=== PATIENT | female | born 1950 | race Caucasian/White ===

== ENCOUNTER 2016-07-01 16:39 | Inpatient (IN) ==
[2016-07-01] MEDS ORDERED: 0.9 % Sodium Chloride 1,000 ML IVC ONE (16:58)
--- NOTE | 2016-07-01 17:09 | Emergency Department Note ---
START Narrative - START START: I examined this patient and my medical decision-making was reviewed with the BLOOD BANK LABORATORY TECHNOLOGIST/PA/Advanced Practice Nurse/Resident Physician. I agree with the documented findings, disposition and treatment plan as described except to the extent set forth below. ED attending note: Patient seen with emergency medicine resident Dr. Lane. Please see a copy of his note for details of the H&P, evaluation, management and disposition of this patient. We independently had [id number] contact with the patient Briefly: A 65-year-old female history of hypertension presents with difficulty finding words and some aphasia since last night. Unknown last known well. Since she woke up with it this morning. Patient has had syncope in the past 2. Aside from her a fascia and apraxia she has a nonfocal neurologic examination patient will get a head CT labs EKG chest x-ray and admission. Disposition pending. Patient stable
--- NOTE | 2016-07-01 17:09 | Emergency Department Note ---
Disposition Clinical Impression: Acute CVA (cerebrovascular accident), Aphasia Disposition: Admitted As Inpatient Condition: Fair Referrals: Cecilia Lizarraga CNP [Primary Care Provider] - Time of Disposition: 19:04 Neuro HPI - General Chief Complaint: ED Neuro Symptoms/Deficit Stated Complaint: trouble speaking Time Seen by Provider: 07/01/16 16:45 Source: patient, family Limitations: no limitations Nursing Notes Reviewed: Yes Vital Signs Reviewed: Yes - History of Present Illness HPI Narrative: 65-year-old female with acute onset of a fascia, last on well was yesterday evening. She has also been evaluated with a head CT 2 days ago N N[place] Veronica was found to be negative for acute CVA. Patient had had several episodes of syncope over the course of last few days. She is having a fascia and dysarthria with slurred speech, patient has had word finding difficulty throughout the day. States this is new. No history of A. fib no history of CVA in the past. Patient does not take any blood thinners or aspirin. Onset of Symptoms Date: 06/30/16 (Last night last known well) Onset of Symptoms Time: 22:00 Symptom Onset Unknown: Yes Location: speech, dysarthria History of same: No Severity: none Symptoms Improving: No Improves with: none Worsens with: none Context: gradual onset On Anticoagulants: No Associated symptoms: Reports: syncope (Episodes of syncope this week.), weakness - Related Data Home Medications: Home Medications Medication Instructions Recorded Confirmed Insulin DETEMIR [Levemir] 21 unit SQ HS 03/23/16 06/26/16 Metformin [Glucophage] 1,000 mg PO BIDWM 06/26/16 06/26/16 Previous Rx's Medication Instructions Recorded Amlodipine [Norvasc] 10 mg PO DAILY #90 tablet 04/29/15 Lisinopril [Zestril] 10 mg PO DAILY #60 tablet 04/29/15 Simvastatin [Zocor] 20 mg PO HS #60 tablet 04/29/15 Pantoprazole Sodium [Protonix] 40 mg PO DAILY #30 tablet. 01/12/16 Azithromycin [Zithromax] 250 mg PO Q24H #6 tablet 06/26/16 Divalproex Sodium [Depakote] 250 mg PO BID #20 tablet. 06/29/16 Allergies/Adverse Reactions: Allergies Allergy/AdvReac Type Severity Reaction Status Date / Time Sulfa (Sulfonamide Allergy Swelling Verified 06/29/16 23:12 Antibiotics) of Lip/Tongue/Throat hydroxyzine [From Vistaril] AdvReac Irritable Verified 06/29/16 23:12 Penicillins AdvReac Nausea Verified 06/29/16 23:12 prednisone AdvReac See Verified 06/29/16 23:12 Comments Review of Systems: All systems were reviewed with historian and negative except as per below, or as documented in the HPI. Constitutional: Denies: fever, chills, weight changes CV: Denies: chest pain, palpitations Resp: Denies: cough, dyspnea, wheezes, hemoptysis GI: Denies: abdominal pain, N/V/D/C Denies: dysuria, hematuria MSK: Denies: back pain, neck pain, extremity pain Skin: Denies: new rashes, new lesions Neuro: aphasia and speech difficulty, syncope this week Denies: CALZADA sensory changes, gait difficulty Psych: Denies: anxiety, depression All systems ED: reviewed and negative except as stated. Past Medical History - Past Medical History Attestation: Yes The following information was validated with the patient. Source: patient Medical history: Reports: diabetes, fibromyalgia, GERD, hyperlipidemia, hypertension, myocardial infarction, other Surgical history: Reports: appendectomy, cholecystectomy, herniorrhaphy ( umbilical), hysterectomy, other (Abdominal tumor removal, tubal ligation, right ankle surgery 2) Psychiatric history: Reports: depression PSYCHOLOGICAL EXAMINER history: Reports: other - Social History Smoking Status: Current every day smoker Smokeless Tobacco Status: No Alcohol use: Reports: none Drug use: Reports: none Physical Exam Constitutional: alert and oriented, in NAD, vital signs reviewed and wnl HEENT: NCAT, sclera anicteric, PERRLA bilaterally, normal external ears bilaterally, nasal septum nondeviated, average dentition, MMM Neck: normal inspection, neck is supple, trachea midline Resp: normal chest inspection, CTA bilaterally, no resp distress CV: RRR, no m/g/r GI: normal inspection, Soft, NTND, BS present Back: normal inspection, no tenderness to palpation Neuro: A&O3, no gross motor or sensory deficits bilaterally, no cranial nerve deficits, patient has aphasia and dysarthria MSK: normal inspection, bilateral UE and LE with normal ROM Skin: No rashes, skin warm, dry, intact - General Limitations: no limitations General appearance: alert, in no apparent distress Course Course Narrative: 65-year-old female with a NIH score of 2 for a phase and dysarthria, no focal motor or sensory deficits appreciated, likely stroke however given symptoms and recent DT scan unclear about onset, it appears her last well was yesterday evening. She had been having TIAs as well they suspected seizures at the [facility] will get a repeat head CT and reassess. - Reevaluation(s) Reevaluation #1: CT scan shows a possible evolving stroke in the robles radiata, likely needs MRI in inpatient setting and stroke workup, I discussed the case with Dr. Claros he does stated that we should get a CT a head and neck to evaluate for embolic sources given that there is no atrial fibrillation, he recommended Plavix and aspirin baby aspirin daily an MRI in the morning Time: 19:00 Reevaluation #2: Hospitalist admits Jamila SECURITY DIRECTOR Time: 19:04 Vital Signs Temperature 98.8 F 07/01/16 16:45 Pulse Rate 75 07/01/16 16:45 Respiratory Rate 16 07/01/16 16:45 Blood Pressure 185/101 07/01/16 16:45 O2 Sat by Pulse Oximetry 98 07/01/16 16:45 Temperature 98.8 F 07/01/16 16:45 Pulse Rate 66 07/01/16 18:37 Respiratory Rate 16 07/01/16 18:37 Blood Pressure 181/88 07/01/16 18:37 O2 Sat by Pulse Oximetry 96 07/01/16 18:37 Oxygen Delivery Oxygen Delivery Room Air Neuro Symptoms/Deficit - Differential Diagnosis Likely: cerebrovascular accident, transient cerebral ischemia, convulsions - Medical Records Medical records reviewed: Yes I reviewed the patient's medical records. - Lab Data Lab results reviewed: Yes I reviewed the patient's lab results. Result diagrams: 07/01/16 17:44 07/01/16 17:44 Lab Results 07/01/16 07/01/16 07/01/16 Range/Units 17:44 17:44 17:44 WBC 15.5 H (4.3-11.1) K/mcL RBC 5.64 H (3.82-4.97) M/mcL Hgb 16.0 H (11.5-15.4) g/dL Hct 48.7 H (35.3-44.9) % MCV 86.3 (83.0-100.0) fL MCH 28.4 (28.0-33.3) pg MCHC 32.9 (31.6-35.5) g/dL RDW 13.1 (11.5-14.5) % Plt Count 441 H (140-400) K/mcL MPV 8.9 L (9.4-12.4) fL Immature Gran % 0.3 (0-4) % Seg Neutrophils % 50.4 % Lymphocytes % 41.2 % Monocytes % 6.5 % Eosinophils % 1.0 % Basophils % 0.6 % Neutrophils # 7.8 (1.6-8.9) K/mcL Lymphocytes # 6.4 H (0.6-4.6) K/mcL Monocytes # 1.0 (0.0-1.3) K/mcL Eosinophils # 0.2 (0.0-0.6) K/mcL Basophils # 0.1 (0.0-0.2) K/mcL Immature Plt Fraction 3.2 (1.1-6.1) % PT 11.2 (9.4-12.1) Seconds INR 1.0 APTT 29.6 (26.0-36.0) Seconds Sodium 140 (136-145) mEq/L Potassium 4.0 (3.5-4.5) mEq/L Chloride 106 (98-109) mEq/L Carbon Dioxide 24 (19-29) mEq/L BUN 12 (7-20) mg/dL Creatinine 0.73 (0.57-1.11) mg/dL Est GFR ( Amer) > 60 (> 60) Est GFR (Non-Af Amer) > 60 (> 60) BUN/Creatinine Ratio 16 (6-26) Glucose 101 H (70-99) mg/dL POC Glucose (58-89) Calculated Osmolality 290 (280-300) Calcium 9.5 (8.6-10.8) mg/dL Troponin I (0-0.03) ng/mL TSH (0.350-4.840) mcIU/mL 07/01/16 07/01/16 07/01/16 Range/Units 17:44 17:44 18:22 WBC (4.3-11.1) K/mcL RBC (3.82-4.97) M/mcL Hgb (11.5-15.4) g/dL Hct (35.3-44.9) % MCV (83.0-100.0) fL MCH (28.0-33.3) pg MCHC (31.6-35.5) g/dL RDW (11.5-14.5) % Plt Count (140-400) K/mcL MPV (9.4-12.4) fL Immature Gran % (0-4) % Seg Neutrophils % % Lymphocytes % % Monocytes % % Eosinophils % % Basophils % % Neutrophils # (1.6-8.9) K/mcL Lymphocytes # (0.6-4.6) K/mcL Monocytes # (0.0-1.3) K/mcL Eosinophils # (0.0-0.6) K/mcL Basophils # (0.0-0.2) K/mcL Immature Plt Fraction (1.1-6.1) % PT (9.4-12.1) Seconds INR APTT (26.0-36.0) Seconds Sodium (136-145) mEq/L Potassium (3.5-4.5) mEq/L Chloride (98-109) mEq/L Carbon Dioxide (19-29) mEq/L BUN (7-20) mg/dL Creatinine (0.57-1.11) mg/dL Est GFR ( Amer) (> 60) Est GFR (Non-Af Amer) (> 60) BUN/Creatinine Ratio (6-26) Glucose (70-99) mg/dL POC Glucose 88 (58-89) Calculated Osmolality (280-300) Calcium (8.6-10.8) mg/dL Troponin I 0.00 (0-0.03) ng/mL TSH 1.842 (0.350-4.840) mcIU/mL - Radiology Data Radiology results reviewed: Yes I reviewed the patient's radiology results. Chest X-Ray 07/01/16 16:59 IMPRESSION: Unremarkable portable AP chest exam D/ / Tay De Souza MD / Tay De Souza MD Interpreting Provider: Tay De Souza MD Head CT 07/01/16 16:59 IMPRESSION: Subtle areas of hypodensity are seen in the robles radiata region and parietal lobe on the left suggestive of developing infarcts. Consider brain MRI for further characterization D/ / Arsenio Honeycutt MD / Arsenio Honeycutt MD Interpreting Provider: Arsenio Honeycutt MD - EKG Data EKG attestation: Yes I reviewed and interpreted this EKG. EKG shows normal: sinus rhythm Rate: normal (69 bpm LA 180 QRS 86 QTc 387.) Rhythm: NSR [place]/QRS: normal When compared to previous EKG there are: previous EKG unavailable Interpretation: normal EKG - Core Measures AMI Core Measures Followed: No NIH Stroke Scale - Level of Consciousness LOC: Alert - LOC Questions LOC Questions: Answers both correctly - LOC Commands LOC Commands: Performs both correctly - Best Gaze Best Gaze: Normal - Visual Visual: No visual loss - Facial Palsy Facial Palsy: Normal - Motor Arms Motor Arm-Left: No drift for 10 seconds Motor Arm-Right: No drift for 10 seconds - Motor Legs Motor Leg-Left: No drift for 5 seconds Motor Leg-Right: No drift for 5 seconds - Limb Ataxia Limb Ataxia: Absent of affected limb too weak to perform exam - Sensory Sensory: Normal - Best Language Best Language: Mild to moderate aphasia. Examiner can identify picture from response - Dysarthria Dysarthria: Mild, slurs some words - Extinction and Inattention Extinction and Inattention: Normal - NIHSS Total Score NIHSS Total Score: 2 TPA Checklist - Eligibilty for IV tPA 1. LKW equal to or less than 4.5 hours be before treatment: No - LKW: 3-4.5 hrs Add. Contraindications Patient/family understanding: The patient/family members have been counseled and understood the risk, benefit , and alternatives of treatment.
[2016-07-01 17:50] LABS: Basophils # 0.1 K/mcL (0.0-0.2); Basophils % 0.6 %; Eosinophils # 0.2 K/mcL (0.0-0.6); Hematocrit 48.7 % (35.3-44.9); Immature Granulocytes % 0.3 % (0-4); Immature Platelets 3.2 % (1.1-6.1); Lymphocytes # 6.4 K/mcL (0.6-4.6); Lymphocytes % 41.2 %; Mean Corpuscular HGB Conc 32.9 g/dL (31.6-35.5); Mean Corpuscular Hemoglobin 28.4 pg (28.0-33.3); Mean Corpuscular Volume 86.3 fL (83.0-100.0); Mean Platelet Volume 8.9 fL (9.4-12.4); Monocytes % 6.5 %; Neutrophils # 7.8 K/mcL (1.6-8.9); Platelet Count 441 K/mcL (140-400); Red Blood Count 5.64 M/mcL (3.82-4.97); Red Cell Distribution Width 13.1 % (11.5-14.5); Segmented Neutrophils % 50.4 %
[2016-07-01 17:55] LABS: Prothrombin Time 11.2 Seconds (9.4-12.1)
[2016-07-01 17:57] LABS: Activated Partial Thrombo Time 29.6 Seconds (26.0-36.0)
[2016-07-01 18:01] LABS: BUN/Creatinine Ratio 16 (6-26); Blood Urea Nitrogen 12 mg/dL (7-20); Calcium 9.5 mg/dL (8.6-10.8); Carbon Dioxide 24 mEq/L (19-29); Chloride 106 mEq/L (98-109); Glucose 101 mg/dL (70-99); Osmolality,Calculated 290 (280-300); Sodium 140 mEq/L (136-145); eGFR For African Americans > 60 (> 60); eGFR For Non-African Americans > 60 (> 60)
[2016-07-01] MEDS ORDERED: Aspirin 81 MG TAB.CHEW PO ONE ×3 (18:12→18:58)
--- NOTE | 2016-07-01 20:42 | Internal Med History&Physical ---
Date of Encounter: 07/01/16 Time of Encounter: 21:03 Assessment and Plan (1) Acute CVA (cerebrovascular accident) Current visit: Yes Status: Acute with dysphasia. CT head showed Possible developing infarct in the robles radiata region and parietal lobe on the left. CTA showed stenosis of the M1 segment left middle cerebral artery. Neurologist recommended aspirin and plavix. will obtain MRI brain; Neurology consult; PT/ Speech therapy consult. (2) Dysphasia Current visit: Yes Status: Acute Due to acute CVA. Speech therapy and Neurology consult. (3) DM (diabetes mellitus) Current visit: Yes Status: Chronic start sliding scale insulin Qualifiers: Diabetes mellitus type: type 2 Diabetes mellitus complication status: with unspecified complications Diabetes mellitus halfway insulin use: with entertainment dancer use Qualified Code(s): E11.8 - Type 2 diabetes mellitus with unspecified complications; Z79.4 - elevator troubleshooter (current) use of insulin (4) HTN (hypertension) Current visit: Yes Status: Chronic Permissive hypertension. consider resuming home meds from tomorrow Qualifiers: Hypertension type: essential hypertension Qualified Code(s): I10 - Essential (primary) hypertension (5) Leucocytosis Current visit: Yes Status: Acute UA is negative. CTA neck showed tree-in-bud opacities suspected to be due to bronchiolitis. Will start levofloxacin (pt was on azithromycin at home and is not responding). We can consider low dose steroids (but pt is listed to be allergic to prednisone) and bronchodilators. check CRP Qualifiers: Leukocytosis type: unspecified Qualified Code(s): D72.829 - Elevated white blood cell count, unspecified (6) DVT prophylaxis Current visit: Yes Status: Acute SCDs Internal Medicine - H&P: HPI Chief complaint: Not able to speak Admitted From: Emergency Dept Plans for Post Hospital Care: Home History of present illness: Ms. Ko is a 65 year old female with h/o diabetes mellitus, fibromyalgia, GERD, hyperlipidemia, hypertension, myocardial infarction, and depression had episodes of syncope and was evaluated at [facility] and had negative CT head. She reports that she could speak this morning, after she woke up. And has been continuing intermittently through the day. She denies headache , visual disturbance, weakness of the extremities, urinary or bowel problems. She denies chest pain, shortness of breath, cough, wheezing, abdominal pain, dysuria or bowel disturbances. She reports that she has been passing a lot of urine. She was evaluated in the ER and CT scan Head showed possible evolving stroke in the robles radiate. ER provider discussed with Neurologist Dr. Claros, who recommended CTA head and neck and Plavix and aspirin and MRI brain in the morning. She is admitted to the hospitalist service for further management. Past Med Surg Social Fam HX - Past Medical History Medical history: diabetes, fibromyalgia, GERD, hyperlipidemia, hypertension, myocardial infarction, other Psychiatric history: depression - Past Surgical History Surgical History: appendectomy, cholecystectomy, herniorrhaphy (umbilical), hysterectomy, other (Abdominal tumor removal, tubal ligation, right ankle surgery 2) - Social History Smoking Status: Current every day smoker Smokeless Tobacco Status: No Alcohol use: none Drug use: none - Family History Father Living Status: Hx Family Cardiac Disorders: Yes (Massive coronary) Mother Living Status: Hx Family Cancer: Yes Internal Medicine - H&P: Meds Amlodipine [Norvasc] 10 mg PO DAILY #90 tablet 04/29/15 [Rx] Lisinopril [Zestril] 10 mg PO DAILY #60 tablet 04/29/15 [Rx] Simvastatin [Zocor] 20 mg PO HS #60 tablet 04/29/15 [Rx] Pantoprazole Sodium [Protonix] 40 mg PO DAILY #30 tablet. 01/12/16 [Rx] Insulin DETEMIR [Levemir] 21 unit SQ HS 03/23/16 [History] Metformin [Glucophage] 1,000 mg PO BIDWM 06/26/16 [History] Allergies Sulfa (Sulfonamide Antibiotics) Allergy (Verified 06/29/16 23:12) Swelling of Lip/Tongue/Throat hydroxyzine [From Vistaril] Adverse Reaction (Verified 06/29/16 23:12) Irritable Penicillins Adverse Reaction (Verified 06/29/16 23:12) Nausea prednisone Adverse Reaction (Verified 06/29/16 23:12) See Comments Elevates blood sugar All Systems PM: A 10-system review of systems was performed and is negative for pertinent findings except as documented above in the HPI. - Constitutional Vitals: Temp Pulse Resp BP Pulse Ox 97.8 F 64 16 208/85 93 L 07/01/16 19:55 07/01/16 19:55 07/01/16 19:55 07/01/16 19:55 07/01/16 19:55 Internal Med - H&P Results - Labs CBC & Chem 7: 07/01/16 17:44 07/01/16 17:44 - EKG Data -: EKG Interpreted by Myself EKG shows normal: sinus rhythm - Impressions ITS Impressions Chest X-Ray 07/01/16 16:59 IMPRESSION: Unremarkable portable AP chest exam D/ / Tay De Souza MD / Tay De Souza MD Interpreting Provider: Tay De Souza MD Head CT 07/01/16 16:59 IMPRESSION: Subtle areas of hypodensity are seen in the robles radiata region and parietal lobe on the left suggestive of developing infarcts. Consider brain MRI for further characterization D/ / Arsenio Honeycutt MD / Arsenio Honeycutt MD Interpreting Provider: Arsenio Honeycutt MD Head CTA 07/01/16 18:18 IMPRESSION: 1. Severe, hemodynamically significant stenosis of the M1 segment left middle cerebral artery. 2. Mild atherosclerotic plaque involving the cavernous internal carotid arteries without hemodynamically significant stenosis. D/ / Jalen Gruber MD / Jalen Gruber MD Interpreting Provider: Jalen Gruber MD Neck CTA 07/01/16 18:18 IMPRESSION: 1. No acute arterial abnormality in the neck. 2. Minimal atherosclerotic disease. No significant carotid or vertebral artery stenosis. 3. Emphysema with diffuse bilateral pulmonary tree-in-bud opacities. Differential diagnostic considerations include infectious or inflammatory bronchiolitis or eosinophilic granulomatosis. Findings are similar to recent CT of the chest performed 06/26/2016. D/ / Jalen Gruber MD / Jalen Gruber MD Interpreting Provider: Jalen Gruber MD
[2016-07-01] MEDS ORDERED: Naloxone 0.4 MG/ML INJ IVP PRN (21:56)
[2016-07-01] MEDS ORDERED: Ipratropium/Albuterol Neb 3 ML IH PRN (22:00)
[2016-07-01] MEDS ORDERED: Dextrose Gel 15 GM PO PRN ×2 (22:02)
[2016-07-01] MEDS ORDERED: *HR* Dextrose 50 % in Water (Syg) 50 ML SYRINGE IVP PRN (22:02)
[2016-07-01] MEDS ORDERED: D5% in Water 1,000 ML IV PRN (22:02)
[2016-07-01 22:59] LABS: Bilirubin,Urine Negative (Negative); Blood,Urine Negative (Negative); Clarity,Urine Clear (Clear); Color,Urine Yellow (Yellow); Glucose,Urine (UA) Normal (Normal); Ketones,Urine Negative (Negative); Leukocyte Esterase,Urine Negative (Negative); Nitrite,Urine Negative (Negative); PH,Urine 6.5 pH Units (5.0-8.0); Protein,Urine 30 mg/dL (Neg-Trace); Specific Gravity,Urine 1.006 (1.010-1.025); Urobilinogen,Urine Normal (Normal)
[2016-07-01 23:01] LABS: Bacteria,Urine None Seen per hpf (None-Few); Hyaline Casts,Urine None Seen per lpf (None-Few); RBC,Urine 0-3 per hpf (0-3); Squamous Epithelial Cell,Urine None Seen per lpf (None-Few); WBC,Urine 0-3 per hpf (0-3)
[2016-07-02 06:19] LABS: Hematocrit 43.9 % (35.3-44.9); Mean Corpuscular HGB Conc 32.8 g/dL (31.6-35.5); Mean Corpuscular Hemoglobin 28.6 pg (28.0-33.3); Mean Corpuscular Volume 87.1 fL (83.0-100.0); Mean Platelet Volume 9.3 fL (9.4-12.4); Platelet Count 358 K/mcL (140-400); Red Blood Count 5.04 M/mcL (3.82-4.97); Red Cell Distribution Width 13.4 % (11.5-14.5)
[2016-07-02 06:23] LABS: Hemoglobin 14.4 g/dL (11.5-15.4)
[2016-07-02 06:58] LABS: BUN/Creatinine Ratio 18 (6-26); Blood Urea Nitrogen 13 mg/dL (7-20); Calcium 8.6 mg/dL (8.6-10.8); Carbon Dioxide 24 mEq/L (19-29); Chloride 106 mEq/L (98-109); Chol/HDL Ratio 4.5 (0-4.9); Cholesterol 161 mg/dL (< 200); Glucose 200 mg/dL (70-99); HDL Cholesterol 36 mg/dL (40-59); LDL Cholesterol,Calculated 98 mg/dL (0-99); Osmolality,Calculated 292 (280-300); Potassium 3.9 mEq/L (3.5-4.5); Sodium 138 mEq/L (136-145); Triglycerides 133 mg/dL (< 150); eGFR For African Americans > 60 (> 60); eGFR For Non-African Americans > 60 (> 60)
[2016-07-02 07:38] LABS: C-Reactive Protein 5 mg/L (Less than 5)
[2016-07-02] MEDS: Aspirin Enteric Coated 81 MG Tablet PO SCH (07:42)
[2016-07-02] MEDS: levoFLOXacin 750 MG TABLET PO SCH (07:42)
[2016-07-02] MEDS: Insulin LISPRO 300 UNITS/3 ML VIAL SQ SCH ×4 (07:43→21:55)
--- NOTE | 2016-07-02 10:40 | Neurology - Consult Note ---
Date of Encounter: 07/02/16 Time of Encounter: 08:45 Assessment and Plan (1) Acute CVA (cerebrovascular accident) Current Visit: Yes Status: Acute This patient who has a history of multiple risk factor for stroke, including hypertension and diabetes noted to have some difficulty to speech at presentation which seems to resolve now. CT scan CT scan did show some concern often involving a stroke and at the same time CT and of the head shows no evidence of intracranial stenosis in the left M1 segment of MCA. Seems to be quite focal stenosis perhaps the cause of her difficulty with the speech. He seems to be doing better now suggested that we should continue on aspirin along with Plavix 75 mg daily and at the same time continue on a statin. She will need a complete workup including echocardiogram and MRI of the brain she already had CT angio of the neck that did not shows any critical stenosis of the carotid or vertebrals. Need to monitor her blood sugar and blood pressure and keep it is stable. She will need physical therapy evaluation for gait and balance to make sure that this is stable (2) DM (diabetes mellitus) Current Visit: Yes Status: Chronic Qualifiers: Diabetes mellitus type: type 2 Diabetes mellitus traveling operator insulin use: with traveling operator use Qualified Code(s): E11.8 - Type 2 diabetes mellitus with unspecified complications; Z79.4 - snf (current) use of insulin (3) HTN (hypertension) Current Visit: Yes Status: Chronic Qualifiers: Hypertension type: essential hypertension Qualified Code(s): I10 - Essential (primary) hypertension (4) Stenosis of intracranial vessel Current Visit: Yes Status: Acute She will be on antiplatelet therapy along with a statin as she is stable now will continue on it perhaps she could be evaluated by vascular neurologist as an outpatient the possibility of any stent placement in the future but at this time as she is stable suggested medical management History of Present Illness HPI: Ms. Ko is a 65 year old female with h/o diabetes mellitus, fibromyalgia, GERD, hyperlipidemia, hypertension, myocardial infarction, and depression had episodes of syncope and was admited via ER, seen due to difficulty with speech , mostly word finding difficulty, she denies any focal weakness, her symptoms has been present for whole day, She denies headache, visual disturbance, weakness of the extremities, urinary or bowel problems. She denies chest pain, shortness of breath, cough, wheezing, abdominal pain, dysuria or bowel disturbances. S She was evaluated in the ER and CT scan Head showed possible evolving stroke in the robles radiate. She is admitted to the hospitalist service for further management. doing better now, no speech deficit, feels weak but not focal weakness Past Med Surg Social Fam HX - Past Medical History Medical history: diabetes, fibromyalgia, GERD, hyperlipidemia, hypertension, myocardial infarction, other Psychiatric history: depression - Past Surgical History Surgical History: appendectomy, cholecystectomy, herniorrhaphy (umbilical), hysterectomy, other (Abdominal tumor removal, tubal ligation, right ankle surgery 2) - Social History Smoking Status: Current every day smoker Smokeless Tobacco Status: No Alcohol use: none Drug use: none - Family History Father Living Status: Hx Family Cardiac Disorders: Yes (Massive coronary) Mother Living Status: Hx Family Cancer: Yes Medications and Allergies Amlodipine [Norvasc] 10 mg PO DAILY #90 tablet 04/29/15 [Rx] Lisinopril [Zestril] 10 mg PO DAILY #60 tablet 04/29/15 [Rx] Simvastatin [Zocor] 20 mg PO HS #60 tablet 04/29/15 [Rx] Pantoprazole Sodium [Protonix] 40 mg PO DAILY #30 tablet. 01/12/16 [Rx] Insulin DETEMIR [Levemir] 21 unit SQ HS 03/23/16 [History] Metformin [Glucophage] 1,000 mg PO BIDWM 06/26/16 [History] Allergies Sulfa (Sulfonamide Antibiotics) Allergy (Verified 06/29/16 23:12) Swelling of Lip/Tongue/Throat hydroxyzine [From Vistaril] Adverse Reaction (Verified 06/29/16 23:12) Irritable Penicillins Adverse Reaction (Verified 06/29/16 23:12) Nausea prednisone Adverse Reaction (Verified 06/29/16 23:12) See Comments Elevates blood sugar All Systems: A 10-system review of systems was performed and is negative for pertinent findings except as documented above in the HPI. Physical Examination - Vital Signs Vital Signs: Initial Vital Signs Temp Pulse Resp BP Pulse Ox 98.8 F 75 16 185/101 98 07/01/16 16:45 07/01/16 16:45 07/01/16 16:45 07/01/16 16:45 07/01/16 16:45 - Exam Exam: Heart S1 S2 audible, LUNGS< CTA, EXT no edema - Neurologic Detailed motor examination: full strength in all major muscle groups Motor examination - right side: 08/25: deltoids, biceps, triceps, wrist flexion, wrist extension, fire protection engineer, hip flexors, tibialis Anterior, quadriceps, toe extension (EHL), plantarflexion Motor examination - left side: 08/25: deltoids, biceps, triceps, wrist flexion, wrist extension, hip flexors, fire protection engineer, quadriceps, tibialis Anterior, toe extension (EHL), plantarflexion Detailed sensory examination: intact Reflex and gait examination: intact Reflexes: Biceps: 1+, Triceps: 1+, Brachioradialis: 1+, Patella: 1+, Achilles: 1 + Mental Status Examination: awake, alert, oriented to person, oriented to place, oriented to time, follows commands appropriately, answers questions appropriately, no agnosia, no aphasia, no aproxia Cranial nerve examination: PERRL, EOMI, visual huerta intact, corneal reflexes brisk symmetrically, sensory to face intact, mastication intact, no facial asymmetry is present, no dysarthria, hearing is intact symmetrically, soft palate elevates bilaterally upon phonation, gag reflex intact, flexes SCM and trapezius muscles symmetrically with full power, tongue protrudes midline, no atrophy or facial fasiculations present Cerebellar examination: no gait ataxia, no truncal ataxia Results - Laboratory Findings CBC and BMP: 07/02/16 05:56 07/02/16 06:37 Abnormal lab findings: Abnormal lab results WBC 14.8 K/mcL (4.3-11.1) H 07/02/16 05:56 RBC 5.04 M/mcL (3.82-4.97) H 07/02/16 05:56 MPV 9.3 fL (9.4-12.4) L 07/02/16 05:56 Lymphocytes # 6.4 K/mcL (0.6-4.6) H 07/01/16 17:44 Glucose 200 mg/dL (70-99) H 07/02/16 06:37 C-Reactive Protein 5 mg/L (Less than 5) H 07/02/16 06:37 HDL Cholesterol 36 mg/dL (40-59) L 07/02/16 06:37 Ur Specific [place] 1.006 (1.010-1.025) L 07/01/16 17:11 Urine Protein 30 mg/dL (Neg-Trace) H 07/01/16 17:11 - Diagnostic Findings Additional findings: CTA HEAD: stenosis in left M1 segment of MCA, NECK CTA negative Consult Discharge Plan - Plan Referrals: Cecilia Lizarraga, JARRET [Primary Care Provider] -
--- NOTE | 2016-07-02 11:45 | Internal Med Progress Note ---
Date of Encounter: 07/02/16 Time of Encounter: 11:43 - Assessment and plan (1) Acute CVA (cerebrovascular accident) Current Visit: Yes Status: Acute Assessment and plan: CTA head reported severe, hemodynamically significant stenosis of the M1 segment left middle cerebral artery. Mild atherosclerotic plaque involving the cavernous internal carotid arteries without hemodynamically significant stenosis. Neurology evaluation appreciated We will continue stroke workup Follow-up 2-D echo, carotid Dopplers, MRI brain Continue aspirin, Plavix, and Lipitor Patient tolerating by mouth intake well Physical therapy and occupational therapy evaluation (2) Leucocytosis Current Visit: Yes Status: Acute Assessment and plan: Leukocytosis improving Imaging studies consistent with bronchiolitis We will continue Levaquin at this time Continue to closely monitor Qualifiers: Leukocytosis type: unspecified Qualified Code(s): D72.829 - Elevated white blood cell count, unspecified (3) DM (diabetes mellitus) Current Visit: Yes Status: Chronic Assessment and plan: Continue home dose of Levemir Sliding-scale insulin algorithm as needed Monitor fingerstick and blood glucose closely Qualifiers: Diabetes mellitus type: type 2 Diabetes mellitus complication status: with unspecified complications Diabetes mellitus [facility] insulin use: with [facility] use Qualified Code(s): E11.8 - Type 2 diabetes mellitus with unspecified complications; Z79.4 - tank terminal gauger (current) use of insulin (4) HTN (hypertension) Current Visit: Yes Status: Chronic Assessment and plan: Restart home medications Qualifiers: Hypertension type: essential hypertension Qualified Code(s): I10 - Essential (primary) hypertension (5) HLD (hyperlipidemia) Current Visit: No Status: Acute Assessment and plan: Continue statin therapy Qualifiers: Hyperlipidemia type: unspecified Qualified Code(s): E78.5 - Hyperlipidemia , unspecified (6) Morbid obesity with BMI of 40.0-44.9, adult Current Visit: Yes Status: Chronic (7) DVT prophylaxis Current Visit: Yes Status: Acute Assessment and plan: IPCD - Subjective Interval history: Pt is a 65y/o female admitted for management of acute CVA. Patient seen and examined with family present at bedside. Patient reports of feeling better compared to the previous day, states her speech is back to normal , and reports of improvement in her weakness as well. Able to ambulate to the bathroom and back without any issues. - Constitutional Vitals: Temp Pulse Resp BP Pulse Ox 98.9 F 75 14 179/85 95 07/02/16 07:44 07/02/16 07:44 07/02/16 07:44 07/02/16 07:44 07/02/16 07:44 General appearance: Present: cooperative, A&O X 3, morbidly obese, no acute distress, answers questions appropriately - Head Head exam: Present: atraumatic, normocephalic - Eye Eye exam: Present: EOMI, normal appearance, PERRL, conjuntiva pink, sclera anicteric - Respiratory Respiratory exam: Present: CTAB. Absent: accessory muscle use, rales, rhonchi, wheezes - Cardiovascular Cardiovascular exam: Present: RRR, +S1, +S2. Absent: diastolic murmur, gallop, rubs, systolic murmur - GI/Abdominal GI/Abdominal exam: Present: normal bowel sounds, soft, no peritoneal signs. Absent: distended, tenderness - Extremities Exam Extremities exam: Present: warm, radial pulses palpable and symetrical. Absent : calf tenderness, cyanotic, pedal edema - Neurological Exam Neurological exam: Present: CN II-XII intact, oriented X3, no focal deficits. Absent: pronater drift, facial droop, speech deficit - Psychiatric Psychiatric exam: Present: normal affect, normal mood Internal Medicine: Result - Labs CBC & Chem 7: 07/02/16 05:56 07/02/16 06:37 Labs: Short CBC 07/02/16 Range/Units 05:56 WBC 14.8 H (4.3-11.1) K/mcL Hgb 14.4 D (11.5-15.4) g/dL Hct 43.9 (35.3-44.9) % Plt Count 358 (140-400) K/mcL BMP 07/02/16 06:37 Sodium 138 Potassium 3.9 Chloride 106 Carbon Dioxide 24 BUN 13 Creatinine 0.72 Glucose 200 H Calcium 8.6 - ABG Interpretation ABG results: PT/INR, D-dimer PT 11.2 Seconds (9.4-12.1) 07/01/16 17:44 - VTE Documentation of Mechanical Device: Intermittent pneumatic compression device Consult Discharge Plan - Plan Referrals: Cecilia Lizarraga AERONAUTICAL ENGINEERING TEACHER [Primary Care Provider] -
[2016-07-02] MEDS ORDERED: Perflutren Lipid Microsphere 1.3 ML in 0.9 % Sodium Chloride 8.7 ML IVP ONE (14:53)
--- NOTE | 2016-07-02 16:45 | Carotid Imaging Report ---
Carotid Duplex Patient Name:Dorota Ko Order Number:[id number] Procedure Date:07/02/2016 Date:1950ge:65 yrs Gender:Female Lt BP:194 / 94 mmHg Rt.BP:182 / 94 mmHgHeart Rate: Location:[facility] Room #: 2N10 Psychotherapist:Sofia Cruz RVT Referring MD:Lexie Cheung MD manager clinical applications:Cecilia Lizarraga, PAPER MAKING MACHINE OPERATOR Reading MD:Dalton Martinez MD , FACS Risk Factors Yes/No Hypertension Yes Hypercholesterolemia Yes Diabetes Yes Smoking Current Yes Impressions: Findings: Bilateral carotid systems have nonstenotic plaque. Findings Carotid Duplex: Right: There is nonstenotic plaque in the right bifurcation. There is smooth heterogeneous plaque. There is nonstenotic plaque in the right proximal internal carotid artery. There is smooth heterogeneous plaque. Left: There is nonstenotic plaque in the left bifurcation. There is smooth heterogeneous plaque. There is nonstenotic plaque in the left proximal internal carotid artery. There is smooth heterogeneous plaque. Prior Study: No prior study available for comparison. Carotid Results Right PSV EDV Assessment Proximal CCA 59 9 Normal Mid CCA 47 7 Normal Distal CCA 50 9 Normal Bifurcation 43 10 Non Stenotic Plaque Proximal ICA 43 9 Non Stenotic Plaque Mid ICA 72 16 Normal Distal ICA 86 18 Normal ECA 70 10 Normal Vertebral Artery 60 12 Antegrade Flow Left PSV EDV Assessment Proximal CCA 73 9 Normal Mid CCA 57 9 Normal Distal CCA 54 11 Normal Bifurcation 47 7 Non Stenotic Plaque Proximal ICA 44 12 Non Stenotic Plaque Mid ICA 103 28 Normal Distal ICA 94 25 Normal ECA 104 11 Normal Vertebral Artery 35 7 Antegrade Flow Ratio's Right ICA/CCA Ratio: 1.82 ICA/CCA Values: 86/47 Left ICA/CCA Ratio: 1.80 ICA/CCA Values: 103/57 Updated by Dalton Martinez MD, FACS on 07/02/2016 4:39:23 PM Dalton Martinez MD electronically signed on 07/02/2016 4:40:01 PM with status of Final
[2016-07-02] MEDS: Metoprolol XL (24 HR) Succ 50 MG TAB.ER.24H PO SCH (16:53)
[2016-07-02] MEDS ORDERED: INSULIN DETEMIR 21 UNIT SQ SCH (21:00)
--- NOTE | 2016-07-02 21:36 | ECHO - Doppler Report ---
Echo with Imaging Enhancement Agent Name: Dorota Ko Date of Study: 07/02/2016 Date: 1950 Ht: 59.0 in Medical Record#: [id number] Age: 65 Wt: 203.0 lb Gender: Female BSA: 1.86 Order #: [id number] Location: [facility] Room #: 2N10 Reading Physician: Ralf Wick DO, FACHomero, [address] [employer] Facilities Manager: Sofia Cruz RVT Ordering Physician: Lexie Cheung MD Primary Physician: Cecilia Lizarraga CNP Indications: Rule out wall motion abnormality, Evaluate LVEF Impressions: LVEF 60-65%. Normal LV chamber size, wall thickness and function. Mild left ventricular diastolic dysfunction. Normal right ventricular structure and function. No evidence of pulmonary hypertension. No significant valvular dysfunction. Left Ventricular Wall Motion: Rest Echo Findings All wall segments showed normal motion. Findings: Study Quality * Technically adequate exam. ECG Findings * Normal sinus rhythm. Left Ventricle * LVEF 60-65%. * Normal LV chamber size, wall thickness and function. * Mild left ventricular diastolic dysfunction. Right Ventricle * Normal right ventricular structure and function. Left Atrium * Mildly dilated left atrium. Right Atrium * Normal right atrial size. Interatrial Septum * Interatrial septum not well evaluated. Aortic Valve * Trileaflet aortic valve with normal function. * No aortic regurgitation. * No aortic stenosis. Mitral Valve * Normal mitral valve structure and function. * No mitral regurgitation. * No mitral stenosis. Tricuspid Valve * Normal tricuspid valve structure and function. * Trace tricuspid regurgitation. * No evidence of pulmonary hypertension. Pulmonic Valve * Pulmonic valve is not well visualized. Pericardium * The pericardium appears normal. Aorta * Normally sized aortic root. IVC * Normal IVC dimensions and inspiratory collapse. Pulmonary Artery * Normal visualized portions of the main pulmonary artery. History Hypertension Diabetes Hypercholesteremia Family History of CAD Myocardial Infarction Contrast: Definity 1.3 ml in 8.7 ml of saline 2 ml. Measurements: BP: 182/ 94 2D Normal Values RVIDd: 2.10 cm <2.7 cm IVSd: 1.10 cm 0.6 - 1.0 cm LVIDd: 4.70 cm 3.7 - 5.6 cm LVPWd: 1.10 cm 0.6 - 1.1 cm LVIDs: 3.10 cm 1.5 - 3.6 cm AO: 2.60 cm < 4.0 cm LA: 3.10 cm 2.0 - 4.0cm %FS: 34.00 cm >25 % LA volume: 57 Mitral Valve Peak E:.96 m/sec Peak A:1.12 m/sec E/A Ratio:0.9 Peak E' Lat Steven:7.21 cm/s Peak E' Med Steven:4.57 cm/s E/E' Lat Ratio:13.4 E/E' Med Ratio:21.1 Tricuspid Valve TV Regurg Peak Grad: 10.00mmHg TV Regurg Peak Steven: 1.62m/sec Updated by Ralf Wick DO, FACHomero, QI, LANE on 07/02/2016 9:29:29 PM electronically signed on 07/02/2016 9:30:16 PM with status of Final Wall Motion Demarco: 1=Normal, 2=Hypokinesis, 3=Akinesis, 4=Dyskinesis, 5=Aneurysmal, 6=Hyperkinetic, X=Not Visualized (Blank)=Missing
[2016-07-02] MEDS: Insulin DETEMIR 100 UNIT/ML X5UNITS SQ SCH (21:56)
[2016-07-02] MEDS ORDERED: *HR* HYDROcodone/Acet 5/325 mg TABLET PO ONE (23:55)
[2016-07-03 05:20] LABS: Basophils # 0.1 K/mcL (0.0-0.2); Basophils % 0.6 %; Eosinophils # 0.2 K/mcL (0.0-0.6); Eosinophils % 1.2 %; Hemoglobin 15.6 g/dL (11.5-15.4); Immature Granulocytes % 0.3 % (0-4); Lymphocytes % 42.5 %; Mean Corpuscular HGB Conc 33.2 g/dL (31.6-35.5); Mean Corpuscular Hemoglobin 28.7 pg (28.0-33.3); Mean Corpuscular Volume 86.6 fL (83.0-100.0); Mean Platelet Volume 9.3 fL (9.4-12.4); Monocytes # 1.4 K/mcL (0.0-1.3); Monocytes % 8.6 %; Neutrophils # 7.7 K/mcL (1.6-8.9); Platelet Count 378 K/mcL (140-400); Red Blood Count 5.43 M/mcL (3.82-4.97); Red Cell Distribution Width 13.3 % (11.5-14.5); Segmented Neutrophils % 46.8 %
[2016-07-03 05:39] LABS: BUN/Creatinine Ratio 18 (6-26); Blood Urea Nitrogen 13 mg/dL (7-20); Calcium 9.2 mg/dL (8.6-10.8); Carbon Dioxide 24 mEq/L (19-29); Chloride 107 mEq/L (98-109); Glucose 88 mg/dL (70-99); Magnesium 1.7 mg/dL (1.6-2.6); Osmolality,Calculated 284 (280-300); Phosphorous 3.2 mg/dL (2.3-4.7); Potassium 3.8 mEq/L (3.5-4.5); Sodium 137 mEq/L (136-145); eGFR For African Americans > 60 (> 60); eGFR For Non-African Americans > 60 (> 60)
[2016-07-03] MEDS: Insulin LISPRO 300 UNITS/3 ML VIAL SQ SCH ×4 (07:59→20:17)
[2016-07-03] MEDS: levoFLOXacin 750 MG TABLET PO SCH (08:11)
[2016-07-03] MEDS: Aspirin Enteric Coated 81 MG Tablet PO SCH (08:11)
[2016-07-03] MEDS: Metoprolol XL (24 HR) Succ 50 MG TAB.ER.24H PO SCH (08:11)
--- NOTE | 2016-07-03 09:34 | Internal Med Progress Note ---
<Tr Boyce - Last Filed: 07/03/16 09:57> Date of Encounter: 07/03/16 Time of Encounter: 09:32 - Assessment and plan (1) Acute CVA (cerebrovascular accident) Current Visit: Yes Status: Acute Assessment and plan: Patient is a 65 year old female with history of hypertension and diabetes who presented with difficulty in speech which is now resolved. CT head revealed subtle areas of hypodensity in the robles radiata region and parietal lobe of the left suggestive of developing infarcts. CTA head revealed severe, hemodynamically, significant stenosis of the M1 segment left middle cerebral artery. Mild atherosclerotic plaque involving the cavernous internal carotid arteries without hemodynamically significant stenosis. CTA Neck revealed no acute arterial abnormality, minimal atherosclerotic disease without significant stenosis. Carotid duplex revealed bilateral nonstenotic plaques Echo revealed LVEF 60-65% with mild LV diastolic dysfunction. MRI brain pending. Continue aspirin, plavix, and lipitor PT/OT eval. Neuro on board. (2) Leucocytosis Current Visit: Yes Status: Acute Assessment and plan: WBC 16.5, increased from 14.8 yesterday. Vitals Temp 97.8, Pulse 95, Resp 18, bp 128/95, and 92% on room air. CTA neck revealed emphysema with diffuse bilateral pulmonary tree-in-bud opacities. Findings consistent with CT chest 06/26/16. CT Chest 06/26/16 revealed bilateral multilobar peribronchovascular and tree-in- bud nodules in a pattern suggestive of infectious vs inflammatory etiology including bronchiolitis, emphysema, and evidence of prior granulomatous disease with calcified mediastinal/hilar lymph nodes, and calcified granulomas in liver and spleen. Continue Levaquin d2 May consider CXR to rule out underlying pneumonia. Qualifiers: Leukocytosis type: unspecified Qualified Code(s): D72.829 - Elevated white blood cell count, unspecified (3) DM (diabetes mellitus) Current Visit: Yes Status: Chronic Assessment and plan: Glucose 88 this morning Continue with Levemir 21 Units qhs, home dose Continue with sliding scale insulin per protocol Monitor blood glucose. Diabetic diet. Qualifiers: Diabetes mellitus type: type 2 Diabetes mellitus complication status: with unspecified complications Diabetes mellitus termite control service representative insulin use: with termite control service representative use Qualified Code(s): E11.8 - Type 2 diabetes mellitus with unspecified complications; Z79.4 - intermediate (current) use of insulin (4) HTN (hypertension) Current Visit: Yes Status: Chronic Assessment and plan: Bp controlled, 128/95. Continue home medications for chronic disease management. Qualifiers: Hypertension type: essential hypertension Qualified Code(s): I10 - Essential (primary) hypertension (5) HLD (hyperlipidemia) Current Visit: No Status: Acute Assessment and plan: Continue Lipitor Qualifiers: Hyperlipidemia type: unspecified Qualified Code(s): E78.5 - Hyperlipidemia , unspecified (6) Morbid obesity with BMI of 40.0-44.9, adult Current Visit: Yes Status: Chronic (7) DVT prophylaxis Current Visit: Yes Status: Acute Assessment and plan: Continue intermittent pneumatic compression devices. - Subjective Interval history: Patient reports doing well overnight, no complaints. Patient denies troubles with speech, swallowing, weakness, or understanding language. Patient denies fevers, chills, sweats, changes in vision or hearing, headaches, lightheadedness , dizziness, nausea, vomiting, dysphagia, chest pain, shortness of breath, abdominal pain, changes in bowels or bladder, weakness, or loss of sensation. - Constitutional Vitals: Temp Pulse Resp BP Pulse Ox 97.8 F 95 18 128/95 92 L 07/03/16 08:15 07/03/16 08:18 07/03/16 08:15 07/03/16 08:15 07/03/16 08:05 General appearance: Present: cooperative, A&O X 3, morbidly obese, no acute distress, answers questions appropriately - Head Head exam: Present: atraumatic, normal inspection, normocephalic - Eye Eye exam: Present: EOMI, normal appearance, PERRL. Absent: nystagmus - ENT ENT exam: Present: mucous membranes moist, normal exam, normal external ear exam , normal oropharynx - Neck Neck exam general surgery: Present: full ROM, normal inspection, supple, trachea midline. Absent: lymphadenopathy, tenderness - Respiratory Respiratory exam: Present: CTAB. Absent: rales, rhonchi, wheezes - Cardiovascular Cardiovascular exam: Present: RRR, +S1, +S2. Absent: JVD - GI/Abdominal GI/Abdominal exam: Present: normal bowel sounds, soft. Absent: distended, guarding, tenderness - Extremities Exam Extremities exam: Present: full ROM, normal capillary refill, normal inspection , warm, radial pulses palpable and symetrical. Absent: calf tenderness, pedal edema, tenderness - Back Exam Back exam: Present: normal inspection. Absent: tenderness - Neurological Exam Neurological exam: Present: alert, CN II-XII intact, oriented X3, reflexes normal, no focal deficits, strengths equal and symetr throughout. Absent: motor sensory deficit, pronater drift, facial droop, speech deficit - Psychiatric Psychiatric exam: Present: normal affect, normal mood - Skin Skin exam: Present: dry, intact, normal color, warm. Absent: rash Internal Medicine: Result - Labs CBC & Chem 7: 07/03/16 05:01 07/03/16 05:01 Labs: Short CBC 07/03/16 Range/Units 05:01 WBC 16.5 H (4.3-11.1) K/mcL Hgb 15.6 H (11.5-15.4) g/dL Hct 47.0 H (35.3-44.9) % Plt Count 378 (140-400) K/mcL Neutrophils # 7.7 (1.6-8.9) K/mcL BMP 07/03/16 05:01 Sodium 137 Potassium 3.8 Chloride 107 Carbon Dioxide 24 BUN 13 Creatinine 0.73 Glucose 88 Calcium 9.2 - ABG Interpretation ABG results: PT/INR, D-dimer PT 11.2 Seconds (9.4-12.1) 07/01/16 17:44 - VTE Documentation of Mechanical Device: Intermittent pneumatic compression device Consult Discharge Plan - Plan Referrals: Cecilia Lizarraga, GROUND PRODUCTS DIRECTOR [Primary Care Provider] - 07/10/16 1:15 pm <Rolly Calvert - Last Filed: 07/03/16 14:35> - Constitutional Vitals: Temp Pulse Resp BP Pulse Ox 98 F 58 17 141/62 98 07/03/16 11:46 07/03/16 11:46 07/03/16 11:46 07/03/16 11:46 07/03/16 11:45 Internal Medicine: Result - Labs CBC & Chem 7: 07/03/16 05:01 07/03/16 05:01 Labs: Short CBC 07/03/16 Range/Units 05:01 WBC 16.5 H (4.3-11.1) K/mcL Hgb 15.6 H (11.5-15.4) g/dL Hct 47.0 H (35.3-44.9) % Plt Count 378 (140-400) K/mcL Neutrophils # 7.7 (1.6-8.9) K/mcL BMP 07/03/16 05:01 Sodium 137 Potassium 3.8 Chloride 107 Carbon Dioxide 24 BUN 13 Creatinine 0.73 Glucose 88 Calcium 9.2 - ABG Interpretation ABG results: PT/INR, D-dimer PT 11.2 Seconds (9.4-12.1) 07/01/16 17:44 - Attending Attestation I examined this patient and my medical decision-making was reviewed with the AIR COMPRESSOR OPERATOR/PA/Advanced Practice Nurse/Resident Physician. I agree with the documented findings, disposition and treatment plan as described except to the extent set forth below. 65 Y/O female with past medical history of hypertension, diabetes, and morbid obesity. Patient is admitted for suspected acute CVA. MRI brain. Vital signs and stable. Her neurologic symptoms have resolved. Speech is normal on exam, she has no motor deficits. She has persistent leukocytosis,possibly secondary to pneumonia and dehydration Hydrate patient, obtain CXR and rpt WBC a.m PT/OT review prior to discharge, brain MRI prior to discharge Rest of details as in resident's documentation...
[2016-07-03] MEDS: Acetaminophen 325 MG TABLET PO PRN ×2 (10:25→20:28)
[2016-07-03] MEDS ORDERED: 0.9 % Sodium Chloride 1,000 ML IVC ONE (11:32)
--- NOTE | 2016-07-03 11:37 | Neurology Progress Note ---
Date of Encounter: 07/03/16 Time of Encounter: 08:15 Assessment and Plan (1) Acute CVA (cerebrovascular accident) Current Visit: Yes Status: Acute This patient who has a history of multiple risk factor for stroke, including hypertension and diabetes noted to have some difficulty to speech at presentation which seems to resolve now. CT scan CT scan did show some concern often involving a stroke and at the same time CT and of the head shows no evidence of intracranial stenosis in the left M1 segment of MCA. Seems to be quite focal stenosis perhaps the cause of her difficulty with the speech. He seems to be doing better now suggested that we should continue on aspirin along with Plavix 75 mg daily and at the same time continue on a statin. She will need a complete workup including echocardiogram and MRI of the brain she already had CT angio of the neck that did not shows any critical stenosis of the carotid or vertebrals. Need to monitor her blood sugar and blood pressure and keep it is stable. She will need physical therapy evaluation for gait and balance to make sure that this is stable. awaits MRI of Brain, likely today continue on ASA and PLAVIX and Statin, dont think she would need any rehab, should be able to go home today, after MRI of brain (2) DM (diabetes mellitus) Current Visit: Yes Status: Chronic (3) HTN (hypertension) Current Visit: Yes Status: Chronic Qualifiers: Hypertension type: essential hypertension Qualified Code(s): I10 - Essential (primary) hypertension (4) Stenosis of intracranial vessel Current Visit: Yes Status: Acute Subjective Interval history: stable n new issues, ECHO and carotid negative, no new issues, MRI pending Objective - Constitutional Vitals: Temp Pulse Resp BP Pulse Ox 97.8 F 95 18 128/95 92 L 07/03/16 08:15 07/03/16 08:18 07/03/16 08:15 07/03/16 08:15 07/03/16 08:05 - Neurological Exam Motor Examination: Present: full strength in all major muscle groups Motor examination - left side: 5/5: deltoids, biceps, triceps, wrist flexion, wrist extension, hip flexors, manufacturing group leader, quadriceps, tibialis Anterior, toe extension (EHL), plantarflexion Sensation intact: Present: intact Reflex and gait examination: intact Mental Status Examination: Present: awake, alert, oriented to person, oriented to place, oriented to time, follows commands appropriately, answers questions appropriately, no agnosia, no aphasia, no aproxia Cranial nerve examination: Present: PERRL, EOMI, visual huerta intact, corneal reflexes brisk symmetrically, sensory to face intact, mastication intact, no facial asymmetry is present, no dysarthria, hearing is intact symmetrically, soft palate elevates bilaterally upon phonation, gag reflex intact, flexes SCM and trapezius muscles symmetrically with full power, tongue protrudes midline, no atrophy or facial fasiculations present Cerebellar examination: Present: no gait ataxia, no truncal ataxia - VTE Documentation of Mechanical Device: Intermittent pneumatic compression device Results - Laboratory Findings CBC and BMP: 07/03/16 05:01 07/03/16 05:01 Abnormal lab findings: Abnormal lab results WBC 16.5 K/mcL (4.3-11.1) H 07/03/16 05:01 RBC 5.43 M/mcL (3.82-4.97) H 07/03/16 05:01 Hgb 15.6 g/dL (11.5-15.4) H 07/03/16 05:01 Hct 47.0 % (35.3-44.9) H 07/03/16 05:01 MPV 9.3 fL (9.4-12.4) L 07/03/16 05:01 Lymphocytes # 7.0 K/mcL (0.6-4.6) H 07/03/16 05:01 Monocytes # 1.4 K/mcL (0.0-1.3) H 07/03/16 05:01 POC Glucose 180 (58-89) H 07/02/16 19:32 C-Reactive Protein 5 mg/L (Less than 5) H 07/02/16 06:37 HDL Cholesterol 36 mg/dL (40-59) L 07/02/16 06:37 Ur Specific [place] 1.006 (1.010-1.025) L 07/01/16 17:11 Urine Protein 30 mg/dL (Neg-Trace) H 07/01/16 17:11 Consult Discharge Plan - Plan Referrals: Cecilia Lizarraga CNP [Primary Care Provider] - 07/10/16 1:15 pm
[2016-07-03] MEDS ORDERED: 0.9 % Sodium Chloride 1,000 ML ONE (11:57)
[2016-07-03] MEDS ORDERED: *HR* Morphine 2 MG/ML SYRINGE IVP PRN (14:13)
--- NOTE | 2016-07-03 15:24 | Electrocardiograph Report ---
[place] [address] Test Date: 2016-07-01 Pat Name: Dorota Ko Department: 103 Room: 2N10 Gender: F Dental Receptionist: : 1950 Requested By: Po Lane Order Number: [id number] Reading MD: Binh Lee Measurements Intervals [place] Rate: 69 P: 47 IL: 180 QRS: 6 QRSD: 86 T: 72 QT: 368 QTc: 387 Interpretive Statements SINUS RHYTHM NONSPECIFIC T-WAVE ABNORMALITY Electronically Signed On 07-03-2016 15:22:31 EDT by Binh Lee
[2016-07-03 17:40] VITALS: BP 167/80
--- NOTE | 2016-07-03 17:44 | Discharge Summary ---
<Tr Boyce - Last Filed: 07/03/16 18:31> Date of Encounter: 07/03/16 Time of Encounter: 17:44 - Discharge Diagnosis (1) Acute CVA (cerebrovascular accident) Priority: Primary Status: Acute Comments: Patient is a 65 year old female with history of hypertension and diabetes who presented with difficulty in speech which is now resolved. CT head revealed subtle areas of hypodensity in the robles radiata region and parietal lobe of the left suggestive of developing infarcts. CTA head revealed severe, hemodynamically, significant stenosis of the M1 segment left middle cerebral artery. Mild atherosclerotic plaque involving the cavernous internal carotid arteries without hemodynamically significant stenosis. CTA neck revealed no acute arterial abnormality, minimal atherosclerotic disease without significant stenosis. Carotid duplex revealed bilateral nonstenotic plaques Echo revealed LVEF 60-65% with mild LV diastolic dysfunction. MRI head revealed acute left MCA vascular territory infarcts. Continue with aspirin, plavix, and statin. PT note mentions patient is independent ambulating and recommends return to previous home situation. (2) Leucocytosis Priority: Primary Status: Acute Comments: Elevated WBC 16.5, increased from yesterday 14.8 CTA neck revealed emphysema with diffuse bilateral pulmonary tree-in-bud opacities. Findings consistent with CT chest 06/26/16. CT chest 06/26/16 revealed bilateral multilobar peribronchovascular and tree-in- bud nodules in a pattern suggestive of infectious vs inflammatory etiology including bronchiolitis, emphysema, and evidence prior granulomatous disease with calcified mediastinal/hilar lymph nodes, and calcified granulomas in liver and spleen. CXR revealed no acute cardiac or pulmonary disease. Continue with levaquin d2 Qualifiers: Leukocytosis type: unspecified Qualified Code(s): D72.829 - Elevated white blood cell count, unspecified (3) DM (diabetes mellitus) Priority: Secondary Status: Chronic Comments: Glucose 88 this morning Continue levemir home dosing continue with sliding scale insulin per protocol Qualifiers: Diabetes mellitus type: type 2 Diabetes mellitus complication status: with unspecified complications Diabetes mellitus [employer] insulin use: with [employer] use Qualified Code(s): E11.8 - Type 2 diabetes mellitus with unspecified complications; Z79.4 - group home (current) use of insulin (4) HTN (hypertension) Priority: Secondary Status: Chronic Comments: Bp controlled, 128/95. Continue home medications for chronic disease management. Qualifiers: Hypertension type: essential hypertension Qualified Code(s): I10 - Essential (primary) hypertension (5) HLD (hyperlipidemia) Priority: Secondary Status: Acute Comments: Continue lipitor Qualifiers: Hyperlipidemia type: unspecified Qualified Code(s): E78.5 - Hyperlipidemia , unspecified (6) Morbid obesity with BMI of 40.0-44.9, adult Priority: Secondary Status: Chronic - Discharge Medications Prescriptions: Aspirin Enteric Coated [Aspirin EC] 81 mg PO DAILY #30 tablet. Atorvastatin [Lipitor] 40 mg PO HS #30 tablet Clopidogrel [Plavix] 75 mg PO DAILY #30 tablet Levofloxacin 750 mg PO DAILY #5 tablet Home Medications: Lisinopril [Zestril] 10 mg PO DAILY #60 tablet 04/29/15 [Rx] Pantoprazole Sodium [Protonix] 40 mg PO DAILY #30 tablet. 01/12/16 [Rx] Insulin DETEMIR [Levemir] 21 unit SQ HS 03/23/16 [History] Metformin [Glucophage] 500 mg PO BID 06/26/16 [History] Aspirin Enteric Coated [Aspirin EC] 81 mg PO DAILY #30 tablet. 07/03/16 [Rx] Atorvastatin [Lipitor] 40 mg PO HS #30 tablet 07/03/16 [Rx] Clopidogrel [Plavix] 75 mg PO DAILY #30 tablet 07/03/16 [Rx] Levofloxacin 750 mg PO DAILY #5 tablet 07/03/16 [Rx] Allergies/Adverse Reactions: Allergies Sulfa (Sulfonamide Antibiotics) Allergy (Verified 06/29/16 23:12) Swelling of Lip/Tongue/Throat hydroxyzine [From Vistaril] Adverse Reaction (Verified 06/29/16 23:12) Irritable Penicillins Adverse Reaction (Verified 06/29/16 23:12) Nausea prednisone Adverse Reaction (Verified 06/29/16 23:12) See Comments Elevates blood sugar Procedures/tests Complete & Pending: Procedures Performed prior 72 hours Category Date Time Status MR head/brain wo con [MR] Routine MRI 07/03/16 22:04 Completed EV carotid duplex imaging BI Stat Y 07/02/16 11:41 Completed EV echocardiogram w enhance Stat Y 07/02/16 11:41 Completed Date of admission: 07/01/16 19:16 Primary care physician: Cecilia Lizarraga CNP Consults: 07/01/16 22:03 Consult to Neurology [CONS] Routine Consulting Provider: [facility] Reason for Consult: CVA Call Completed: No Consult to Physical Therapy [CONS] Routine Comment: Evaluate, develop and implement POC Consult to Speech Therapy [CONS] Routine Comment: Evaluate, develop and implement POC Reason for Consult: Dysphasia Call Completed: No Discharging clinician: Rolly Calvert (Tr Boyce) Anticipated date of discharge: 07/03/16 - Patient Status Disposition: Home, Self-Care Condition: Fair Functional capacity at discharge: independent ambulation Overall status at discharge: patient is progressing back to baseline - Discharge Instructions Instructions: Ischemic Stroke (DC) Follow Up With: Cecilia Lizarraga CNP [Primary Care Provider] - 07/10/16 1:15 pm Kristie Claros MD [Partnered Physician] - Forms: ED Satisfaction Letter Additional Instructions: Follow up with your Primary care provider in 7 days regarding this hospital admission,. Follow up with Dr. Claros, Neurologist regarding your acute CVA diagnosis. Take the aspirin, lipitor (increased dosage), and plavix daily. Complete the entire course of antibiotics as directed. - Diet and Activity Activity: resume usual activities as tolerated Diet: advance to your usual diet, diabetic diet, low salt diet Interval History: Patient reports doing well overnight, no complaints. Patient denies troubles with speech, swallowing, weakness, or understanding language. Patient denies fevers, chills, sweats, changes in vision or hearing, headaches, lightheadedness , dizziness, vomiting, dysphagia, chest pain, shortness of breath, abdominal pain, changes in bowels or bladder, weakness, or loss of sensation. Hospital course: Ms. Ko is a 65 year old female with history of diabetes, fibromyalgia, gerd, hyperlipidemia, and hypertension who was transferred from [facility] to [facility] with complaint of episodes of syncope and troubnles with speech when she woke up. CT head revealed subtle area of hypodensity in robles radiata region and parietal lobe suggesting infarcts. CTA head revealed significant stenosis of the M1 segment of the left middle cerebral artery. CTA neck revealed no acute arterial abnormality and minimal atherosclerotic disease without significant stenosis. Carotid duplex revealed bilateral nonstenotic plaques. Echo LVEF 60-65% with mild LV diastolic dysfunction. MRI revealed acute left MCA vascular territory infarcts. Patient was also started on Levaquin due to elevated WBC. CTA neck revealed emphysema with diffuse bilateral pulmonary tree-in-but opacities. CT chest 06/26/16 revealed bilateral multilobar peribronchovascular and tree-in-bud nodules in a pattery suggestive of possible bronchiolitis vs emphysema. CXR revealed no acute cardiopulmonary disease. Patient was started on plavix, aspirin, and lipitor was increased to 40mg from home dosing. Neurology evaluated patient and PT evaluated patient. PT recommended home discharge as patient was independent ambulating and needed no additional help for ADLs. Patient to be discharge home with scripts of Levaquin, Aspirin, Plavix, and increased Lipitor. Patient to follow up with PCP and Neurology. - Time Spent with Patient Total time spent providing and/or coordinating discharge services: Less than 30 minutes - Constitutional Vitals: Temp Pulse Resp BP Pulse Ox 97.6 F 61 17 167/80 95 07/03/16 16:00 07/03/16 16:00 07/03/16 16:00 07/03/16 16:00 07/03/16 16:00 General appearance: Present: cooperative, A&O X 3, morbidly obese, no acute distress, obese, answers questions appropriately - Head Head exam: Present: atraumatic, normal inspection, normocephalic - Eye Eye exam: Present: EOMI, normal appearance, PERRL - ENT ENT exam: Present: mucous membranes moist, normal exam, normal external ear exam , normal oropharynx - Neck Neck exam general surgery: Present: full ROM, normal inspection, supple, trachea midline. Absent: lymphadenopathy, tenderness - Respiratory Respiratory exam: Present: CTAB. Absent: rales, rhonchi, wheezes - Cardiovascular Cardiovascular exam: Present: RRR, +S1, +S2. Absent: diastolic murmur, systolic murmur - GI/Abdominal GI/Abdominal exam: Present: normal bowel sounds, soft. Absent: distended, guarding, tenderness - Extremities Exam Extremities exam: Present: full ROM, normal capillary refill, normal inspection , warm. Absent: pedal edema, tenderness - Back Exam Back exam: Present: normal inspection. Absent: tenderness - Neurological Exam Neurological exam: Present: alert, CN II-XII intact, normal gait, oriented X3, reflexes normal, no focal deficits, strengths equal and symetr throughout. Absent: motor sensory deficit, pronater drift, facial droop, speech deficit - Psychiatric Psychiatric exam: Present: normal affect, normal mood - Skin Skin exam: Present: dry, intact, normal color, warm. Absent: diaphoretic, pallor, rash - VTE Documentation of Mechanical Device: Intermittent pneumatic compression device <EnrikeRolly T - Last Filed: 07/03/16 19:09> Procedures/tests Complete & Pending: Procedures Performed prior 72 hours Category Date Time Status MR head/brain wo con [MR] Routine MRI 07/03/16 22:04 Completed EV carotid duplex imaging BI Stat Y 07/02/16 11:41 Completed EV echocardiogram w enhance Stat Y 07/02/16 11:41 Completed Date of admission: 07/01/16 19:16 Primary care physician: Cecilia Lizarraga CNP Consults: 07/01/16 22:03 Consult to Neurology [CONS] Routine Consulting Provider: [facility] Reason for Consult: CVA Call Completed: No Consult to Physical Therapy [CONS] Routine Comment: Evaluate, develop and implement POC Consult to Speech Therapy [CONS] Routine Comment: Evaluate, develop and implement POC Reason for Consult: Dysphasia Call Completed: No Hospital course: Ms. Ko is a 65 year old female - Time Spent with Patient Total time spent providing and/or coordinating discharge services: - Constitutional Vitals: Temp Pulse Resp BP Pulse Ox 97.6 F 61 17 167/80 95 07/03/16 16:00 07/03/16 16:00 07/03/16 16:00 07/03/16 16:00 07/03/16 16:00 - Attending Attestation Acute CVA, safe for discharge rest as in resident's notes
[2016-07-03] MEDS: Insulin DETEMIR 100 UNIT/ML X5UNITS SQ SCH (20:19)
[2016-07-03] MEDS ORDERED: FLU VACC QS2016-17 36MOS UP/PF 0.5 ML SYRINGE IM ONE (20:40)
== END 2016-07-03 20:53 | disposition home or self-care (01) | DRG 45 ==
LOC: EMEROO 16:39 → 2NNU 19:16 → SUATTDRO 19:16 → 2NNU 19:40
PROVIDERS: ADMIT Internal Medicine; ATTEND Internal Medicine